=== PATIENT | male | born 1945 | race Caucasian/White ===

== ENCOUNTER 2018-04-19 06:49 | Day surgery (SDC) | payer MEDICARE ==
[2018-04-17 13:44] LABS: BASOPHILS # (AUTO) 0.1 X10'3 (0-0.2); BASOPHILS % (AUTO) 0.9 % (0-1); EOSINOPHILS # (AUTO) 0.2 X10'3 (0-0.9); EOSINOPHILS % (AUTO) 3.4 % (0-6); HEMATOCRIT 44.1 % (42.0-52.0); LYMPHOCYTES # (AUTO) 2.2 X10'3 (1.1-4.8); LYMPHOCYTES % (AUTO) 36.4 % (21-51); MEAN CORPUSCULAR HEMOGLOBIN 32.1 PG (27.0-31.0); MEAN CORPUSCULAR HGB CONC 34.1 % (33.0-36.5); MEAN CORPUSCULAR VOLUME 94.3 FL (78-98); MEAN PLATELET VOLUME 8.5 FL (7.4-10.4); MONOCYTES # (AUTO) 0.5 X10'3 (0-0.9); MONOCYTES % (AUTO) 9.1 % (2-12); NEUTROPHILS % (AUTO) 50.2 % (42-75); PARTIAL THROMBOPLASTIN TIME 26 SECONDS (22-32); PLATELET COUNT 214 X10'3 (140-440); PROTHROMBIN TIME 10.2 SECONDS (9.0-12.0); RED BLOOD COUNT 4.67 X10'6 (4.70-6.10); RED CELL DISTRIBUTION WIDTH 12.4 % (11.5-14.5)
[2018-04-17 13:49] LABS: ALANINE AMINOTRANSFERASE 51 U/L (12-78); ALBUMIN 3.3 G/DL (3.4-5.0); ALBUMIN/GLOBULIN RATIO 0.9 (1.1-1.5); ALKALINE PHOSPHATASE 63 IU/L (46-116); ANION GAP 10 (8-16); ASPARTATE AMINO TRANSFERASE 20 U/L (10-37); BILIRUBIN,TOTAL 0.4 MG/DL (0.1-1.0); BLOOD UREA NITROGEN 21 MG/DL (7-18); CALCIUM 8.8 MG/DL (8.5-10.1); CHLORIDE 105 MMOL/L (99-107); GLUCOSE 119 MG/DL (70-104); SODIUM 143 MMOL/L (135-145); TOTAL CARBON DIOXIDE 28.1 MMOL/L (24-32); TOTAL PROTEIN 7.1 G/DL (6.4-8.2); eGFR 74 ML/MIN
[2018-04-19] VITALS (11 sets, daily range): BP systolic 139–172; BP diastolic 50–92
[~2018-04-19] VITALS: Ht 182.9 cm; Wt 105.6 kg
[2018-04-19] MEDS ORDERED: nitroGLYCERIN 0.4mg SUBLingual tab SL PRN (07:05)
[2018-04-19] MEDS ORDERED: diphenhydrAMINE 25mg capsule PO PRN (07:05)
[2018-04-19] MEDS ORDERED: LORazepam 0.5 MG tablet PO PRN (07:05)
[2018-04-19] MEDS ORDERED: normal saline 1000ml 1,000 ML IV SCH ×2 (07:05→10:45)
[2018-04-19] MEDS ORDERED: CHOL500049 (07:15)
[2018-04-19] MEDS ORDERED: TERA10CA4 PO (07:15)
[2018-04-19] MEDS ORDERED: GABA-532 PO (07:15)
[2018-04-19] MEDS ORDERED: ALLO100T PO (07:15)
[2018-04-19] MEDS ORDERED: METO-395 PO (07:15)
[2018-04-19] MEDS ORDERED: midazolam 2 mg/2 ml injection ONE (09:18)
[2018-04-19] MEDS ORDERED: iohexol 350MG/ML 100ml bottle IV ONE (09:18)
[2018-04-19] MEDS ORDERED: iohexol 350 MG/ML 50ML vial IV ONE ×2 (09:18→09:50)
[2018-04-19] MEDS ORDERED: LIDOcaine 1% (10mg/ml)w/preservative injection 20ml MDV ONE (09:18)
[2018-04-19] MEDS ORDERED: fentaNYL/PF 50MCG/1 ML 2ML syringe ONE (09:18)
[2018-04-19] MEDS ORDERED: heparin 1,000 UNITS/NS 500ml 500 ML ONE (09:18)
[2018-04-19] MEDS ORDERED: nitroGLYCERIN-Tridil 50MG/D5W 250 ML IV ONE (09:59)
[2018-04-19] MEDS ORDERED: enalaprilat dihydrate 2.5mg/2ml vial IV ONE (09:59)
[2018-04-19] MEDS ORDERED: ondansetron/PF 4mg/2ml inj IV PRN (10:45)
[2018-04-19] MEDS ORDERED: HYDROcodone/acetaminophen 10/325mg tab PO PRN (10:45)
[2018-04-19] MEDS ORDERED: proCHLORperazine 10 MG/2 ml inj IV PRN (10:45)
[2018-04-19] MEDS ORDERED: OXAZEpam 15mg capsule PO PRN (10:45)
[2018-04-19] MEDS ORDERED: HYDROcodone/acetaminophen 5mg/325mg tablet PO PRN (10:45)
[2018-04-19] MEDS: gabapentin 300mg capsule PO SCH ×2 (11:23→13:32)
[2018-04-19] MEDS ORDERED: gabapentin 300mg capsule PO SCH (16:00)
== END 2018-04-19 17:00 | disposition home or self-care (01) ==
LOC: SSTAY O 06:49 → EDSEX 09:30 → SSTAY O 17:00
PROVIDERS: ATTEND Internal Medicine Cardiovascular Disease
DX: I25.10 Atherosclerotic heart disease of native coronary artery without angina pectoris (principal); I49.8 Other specified cardiac arrhythmias; J44.9 Chronic obstructive pulmonary disease, unspecified; G89.29 Other chronic pain; I10 Essential (primary) hypertension; E11.9 Type 2 diabetes mellitus without complications; L40.8 Other psoriasis; Z72.89 Other problems related to lifestyle; Z87.891 Personal history of nicotine dependence; Z79.891 Long term (current) use of opiate analgesic; Z98.890 Other specified postprocedural states; Z79.899 Other long term (current) drug therapy; Z82.49 Family history of ischemic heart disease and other diseases of the circulatory system
CPT/HCPCS: 36415; 71046; 80053; 85025; 85610; 85730; 93005; 93458; 93567; 99152; 99153; A6257; C1760; C1769; G0278; J1644; J2001; J2250; J3010; J3490; J7030; Q0163; Q9967; A4620